=== PATIENT | female | born 1990 | race African-American/Black ===

== ENCOUNTER 2020-08-26 22:38 | Emergency (ER) | payer BC ==
[~2020-08-26] VITALS: Ht 167.6 cm; Wt 73.0 kg
[2020-08-26] MEDS ORDERED: IBUPROFEN 600MG TABLET PO ONE (23:30)
[2020-08-27 03:16] VITALS: BP 130/77
== END 2020-08-27 03:20 | disposition home or self-care (01) ==
LOC: ER 22:38
DX: S16.1XXA Strain of muscle, fascia and tendon at neck level, initial encounter (principal); V49.9XXA Car occupant (driver) (passenger) injured in unspecified traffic accident, initial encounter; Y93.89 Activity, other specified; Y92.89 Other specified places as the place of occurrence of the external cause; Y99.8 Other external cause status
CPT/HCPCS: 81025; 99284

== ENCOUNTER 2022-09-03 11:52 | Inpatient (IN) | payer BC ==
[~2022-09-03] VITALS: Ht 167.6 cm; Wt 95.3 kg
[2022-09-03] MEDS ORDERED: MISOPROSTOL 100MCG TABLET VG SCH (14:15)
[2022-09-03] MEDS ORDERED: METHYLERGONOVINE MALEATE 0.2 MG/ML IM PRN (14:15)
[2022-09-03] MEDS ORDERED: RHO(D) IMMUNE GLOBULIN 300 MCG/SYR IM ONE (14:15)
[2022-09-03] MEDS ORDERED: BUTORPHANOL TARTRATE 2 MG/ML VIAL IV PRN (14:15)
[2022-09-03] MEDS ORDERED: LIDOCAINE HCL 1% 20ML VIAL (Pyxis) INJ INFIL SCH (14:15)
[2022-09-03] MEDS ORDERED: CARBOPROST TROMETHAMINE 250 MCG/ML AMPUL IM PRN (14:15)
[2022-09-03] MEDS ORDERED: NALOXONE HCL 0.4 MG/ML 1ML VIAL IM PRN (14:15)
[2022-09-03 14:54] LABS: BASOPHILS % 0.4 % (0.0-2.0); EOSINOPHILS % 1.2 % (0.0-5.0); HEMATOCRIT. 34.9 % (36.0-48.0); HEMOGLOBIN. 11.6 g/dL (12.0-16.0); LYMPHOCYTES % 13.7 % (20.0-50.0); MEAN CORPUSCULAR HEMOGLOBIN 30.2 pg (28.0-32.0); MEAN CORPUSCULAR VOLUME 90.6 fL (81.0-99.0); MEAN PLATELET VOLUME 9.2 fl (7.4-10.4); MONOCYTES % 10.2 % (2.0-8.0); NEUTROPHILS % 74.5 % (40.0-76.0); PLATELET 239 x1000/uL (130-400); RED BLOOD CELL COUNT 3.85 mill/uL (4.2-5.4); RED CELL DISTRIBUTION WIDTH 13.5 % (11.6-14.6)
[2022-09-03 14:59] LABS: CHLORIDE 104 mEq/L (98-107); CLARITY URINE CLEAR (CLEAR); COLOR URINE YELLOW (YELLOW); KETONES URINE TRACE (NEGATIVE); LEUKOCYTE ESTERASE URINE 2+ (NEGATIVE); NITRITE URINE NEGATIVE (NEGATIVE); OCCULT BLOOD URINE TRACE (NEGATIVE); PH URINE 7.5 (4.5-8.0); PROTEIN URINE 1+ (NEGATIVE); SPECIFIC GRAVITY URINE 1.026 (1.005-1.030)
[2022-09-03 15:23] LABS: *AMPHETAMINES SCREEN URINE NEGATIVE (NEGATIVE); *BARBITURATES SCREEN URINE NEGATIVE (NEGATIVE); *BENZODIAZEPINES SCREEN URINE NEGATIVE (NEGATIVE); *COCAINE SCREEN URINE NEGATIVE (NEGATIVE); CANNABINOID URINE SCREEN NEGATIVE (NEGATIVE); METHADONE URINE SCREEN NEGATIVE (NEGATIVE); OPIATES URINE SCREEN NEGATIVE (NEGATIVE); PHENCYCLIDINE URINE SCREEN NEGATIVE (NEGATIVE)
[2022-09-03 15:32] LABS: HEPATITIS B SURFACE ANTIGEN NEGATIVE
[2022-09-03] MEDS: LACTATED RINGERS 1,000 ML IV SCH (16:16)
[2022-09-03] MEDS: OXYTOCIN 30 UNITS/500ML NS PMX 500 ML IV SCH (17:52)
[2022-09-04] MEDS: LACTATED RINGERS 1,000 ML IV SCH ×4 (02:24→17:48)
[2022-09-04] MEDS ORDERED: ROPIVACAINE HCL/PF EPIDURAL 200 ML EPI SCH ×2 (02:45→15:30)
[2022-09-04] MEDS ORDERED: ROPIVACAINE HCL/PF EPIDURAL 200 ML EPI ONE ×2 (02:47→15:27)
[2022-09-04] MEDS ORDERED: FENTANYL CITRATE/PF 50MCG/ML 2ML VIAL ONE ×3 (12:39→21:28)
[2022-09-04 22:11] LABS: INR 0.9; PARTIAL THROMBOPLASTIN TIME 28.2 sec (23.4-31.0); PROTHROMBIN TIME 10.2 sec (9.6-11.0)
[2022-09-05] MEDS ORDERED: ROPIVACAINE HCL/PF EPIDURAL 200 ML EPI ONE (01:21)
[2022-09-05] MEDS ORDERED: FENTANYL CITRATE/PF 50MCG/ML 2ML VIAL ONE (01:22)
[2022-09-05] MEDS: LACTATED RINGERS 1,000 ML IV SCH (01:27)
[2022-09-05] MEDS ORDERED: AMPICILLIN 2,000 MG in SODIUM CHLORIDE 0.9% 100 ML IV SCH (02:30)
[2022-09-05] MEDS ORDERED: PNV1TABL76 PO (02:35)
[2022-09-05] MEDS ORDERED: LIDOCAINE HCL 1% 20ML VIAL (Pyxis) INJ ONE (02:48)
[2022-09-05] MEDS: OXYTOCIN 30 UNITS/500ML NS PMX 500 ML IV SCH (03:25)
[2022-09-05] MEDS ORDERED: RHO(D) IMMUNE GLOBULIN 300 MCG/SYR IM PRN (04:00)
[2022-09-05] MEDS ORDERED: METHYLERGONOVINE MALEATE 0.2 MG/ML IM PRN (04:00)
[2022-09-05] MEDS ORDERED: OXYTOCIN 30 UNITS/500ML NS PMX 500 ML IV SCH (04:00)
[2022-09-05] MEDS ORDERED: LANOLIN OINT 7GM TUBE TOP PRN (04:00)
[2022-09-05] MEDS ORDERED: DIPHENHYDRAMINE 25MG CAPSULE PO PRN (04:00)
[2022-09-05] MEDS ORDERED: OXYCODONE HCL/ACETAMINOPHEN 5/325MG TABLET PO PRN (04:00)
[2022-09-05] MEDS ORDERED: IBUPROFEN 400MG TABLET PO PRN (04:00)
[2022-09-05] MEDS: IBUPROFEN 800MG TABLET PO PRN ×2 (04:00→13:49)
[2022-09-05] MEDS ORDERED: GLYCERIN/WITCH HAZEL LEAF MEDICATED PAD TOP PRN (04:00)
[2022-09-05] MEDS ORDERED: HEMORRHOIDAL SUPP PR PRN (04:00)
[2022-09-05] MEDS ORDERED: BENZOCAINE/LANOLIN/ALOE VERA SPRAY TOP PRN (04:00)
[2022-09-05 05:10] VITALS: BP 136/78
[2022-09-05 07:40] VITALS: BP 124/74
[2022-09-05] MEDS: PRENATAL VIT/FE FUMARATE/FA TABLET PO SCH (08:46)
[2022-09-05 13:56] VITALS: BP 130/90
[2022-09-05 17:25] VITALS: BP 128/80
[2022-09-05 18:10] LABS: CLARITY URINE CLEAR (CLEAR); COLOR URINE YELLOW (YELLOW); KETONES URINE NEGATIVE (NEGATIVE); LEUKOCYTE ESTERASE URINE 1+ (NEGATIVE); NITRITE URINE NEGATIVE (NEGATIVE); OCCULT BLOOD URINE 3+ (NEGATIVE); PH URINE 6.5 (4.5-8.0); PROTEIN URINE 1+ (NEGATIVE); SPECIFIC GRAVITY URINE 1.008 (1.005-1.030); UROBILINOGEN URINE 0.2 E.U./dL (0.2-1.0)
[2022-09-05] MEDS ORDERED: ROPIVACAINE HCL/PF EPIDURAL 200 ML EPI SCH (18:15)
[2022-09-05 19:30] VITALS: BP 135/78
[2022-09-05] MEDS ORDERED: DOCUSATE SODIUM 100MG CAPSULE PO SCH (21:00)
[2022-09-06 04:00] VITALS: BP 132/73
[2022-09-06] MEDS ORDERED: FERROUS SULFATE 325MG TABLET PO SCH (07:30)
[2022-09-06 08:00] VITALS: BP 120/75
[2022-09-06] MEDS: PRENATAL VIT/FE FUMARATE/FA TABLET PO SCH (08:06)
[2022-09-06] MEDS: IBUPROFEN 800MG TABLET PO PRN (08:06)
[2022-09-06 16:00] VITALS: BP 124/76
[2022-09-06 16:27] LABS: BASOPHILS % 0.4 % (0.0-2.0); EOSINOPHILS % 0.6 % (0.0-5.0); HEMOGLOBIN. 8.5 g/dL (12.0-16.0); LYMPHOCYTES % 9.8 % (20.0-50.0); MEAN CORPUSCULAR HEMOGLOBIN 30.7 pg (28.0-32.0); MEAN CORPUSCULAR VOLUME 93.3 fL (81.0-99.0); MEAN PLATELET VOLUME 8.9 fl (7.4-10.4); MONOCYTES % 7.3 % (2.0-8.0); NEUTROPHILS % 81.9 % (40.0-76.0); PLATELET 151 x1000/uL (130-400); RED BLOOD CELL COUNT 2.78 mill/uL (4.2-5.4)
== END 2022-09-06 19:00 | disposition home or self-care (01) | DRG 768 ==
LOC: OBSVTOIN 11:52 → 8 EST LDRP 11:52 → 8EST 09-05 05:08
PROVIDERS: ADMIT Obstetrics & Gynecology; ATTEND Obstetrics & Gynecology
PROC: 0DQR0ZZ Repair Anal Sphincter, Open Approach (ICD-10-PCS; principal; 2022-09-05)
PROC: 10D07Z6 Extraction of Products of Conception, Vacuum, Via Natural or Artificial Opening (ICD-10-PCS; 2022-09-05)
PROC: 3E0R3BZ Introduction of Anesthetic Agent into Spinal Canal, Percutaneous Approach (ICD-10-PCS; 2022-09-05)
PROC: 00HU33Z Insertion of Infusion Device into Spinal Canal, Percutaneous Approach (ICD-10-PCS; 2022-09-05)
DX: O48.0 Post-term pregnancy (principal); Z37.0 Single live birth; O70.20 Third degree perineal laceration during delivery, unspecified; Z3A.40 40 weeks gestation of pregnancy; Z20.822 Contact with and (suspected) exposure to COVID-19; O76 Abnormality in fetal heart rate and rhythm complicating labor and delivery; O75.81 Maternal exhaustion complicating labor and delivery; N30.90 Cystitis, unspecified without hematuria
CPT/HCPCS: 36415; 76805; 76818; 80053; 80305; 81003; 85025; 86592; 86703; 86762; 86850; 86900; 87340; 87426; G0378; J0290; J2795; J3010; J3490; J7050; A4315; J2590